=== PATIENT | male | born 1980 | race Caucasian/White ===

== ENCOUNTER → 2024-03-08 15:31 | Outpatient (REF) | payer OTHER, SELFPAY | LOC: ANHLAB 15:31 | PROVIDERS: Visit Provider Plastic Surgery | DX: L72.0 Epidermal cyst (principal) | CPT/HCPCS: 88305 ==

== ENCOUNTER 2024-05-24 10:04 | Inpatient (IN) | payer OTHER, SELFPAY ==
[2024-05-24] VITALS (30 sets, daily range): BP systolic 121–150; BP diastolic 82–100; PULSE 79–117; RESP 14–20; TEMP 36.3–36.8; O2SAT 88–100; BMI 21.1
--- NOTE | ~2024-05-24 | XR_ITS ---
EXAMINATION: XR chest 1V portable DATE: 05/24/2024 12:28 INDICATION: Shortness of breath. Cough. TECHNIQUE: A single frontal view of the chest was obtained on 2 radiographs. COMPARISON: None. FINDINGS: There is no pneumonia, pleural effusion, or pneumothorax. The heart size is normal. IMPRESSION: 1. No acute cardiopulmonary disease. Reviewed, dictated and finalized at location A. [facility]
--- NOTE | ~2024-05-24 | CT_ITS ---
EXAMINATION: CTA chest PE protocol DATE: 05/27/2024 08:11 INDICATION: Tachycardia. Tachypnea. TECHNIQUE: Computed tomography angiography (CTA) of the chest was performed with 100 mL Omnipaque-350 intravenous contrast timed to evaluate the pulmonary arteries. Coronal maximum intensity projection 3D-reconstructions were created by the technologist. Automated exposure control and iterative reconst ruction technique were employed. The dose-length product was 348.66 mGy-cm. COMPARISON: Chest CT 05/24/2024 FINDINGS: There is mild emphysema. There are small pleural effusions. There are airspace opacities in the lower lobes with a dependent predominance. There is material in the left lower lobe bronchi. The re is mild mediastinal lymphadenopathy, likely reactive. The heart size is normal. There is a small p ericardial effusion. There is no pulmonary embolus. There is mild thoracic spondylosis. There is mild chronic anterior wedging of multiple vertebral bodies. IMPRESSION: 1. No pulmonary embolus. 2. Worsened airspace opacities in the lower lobes, consistent with a combination of pneumonia and ate lectasis. 3. Worsened small pleural effusions. 4. Mild emphysema. 5. Mild mediastinal lymphadenopathy, likely reactive. 6. Worsened small pericardial effusion. Reviewed, dictated and finalized at location A. [facility] IMPRESSION: 1. No pulmonary embolus. 2. Worsened airspace opacities in the lower lobes, consistent with a combinatio n of pneumonia and atelectasis. 3. Worsened small pleural effusions. 4. Mild emphysema. 5. Mild mediastinal lymphadenopathy, likely reactive. 6. Worsened small pericardial effusion.
--- NOTE | ~2024-05-24 | CT_ITS ---
EXAMINATION: CT diagnostic chest w con DATE: 05/24/2024 14:08 INDICATION: new oxygen requirement, SOB TECHNIQUE: Computed tomography (CT) of the chest was performed with 100 mL Omnipaque-350 intravenous contrast. Additional 3D reconstructions utilizing coronal maximum intensity projection (MIP) were per formed. Automated exposure control and iterative reconstruction technique were employed. The dose-mone gth product was 347.68 mGy-cm. COMPARISON: None FINDINGS: Mild emphysema. Patchy consolidation, groundglass opacities and tree-in-bud opacities in the dependen t aspect of the bilateral lower lobes consistent with pneumonia. There is bronchial wall thickening m ost prominent in the lower lobes where there is also some mucous plugging also likely related to pneu monia. No pulmonary edema or pleural effusion. Heart size is normal. No pericardial effusion. Thoraci c aorta is normal in caliber with no dissection. Subcentimeter low-attenuation likely cysts at the up per poles of both kidneys which are too small to definitively characterize. The left upper abdomen is otherwise unremarkable. Mild to moderate thoracic spondylosis. IMPRESSION: 1. Mild emphysema with bilateral lower lobar pneumonia. Reviewed, dictated and finalized at location A. [facility]
--- NOTE | 2024-05-24 10:46 | ECG_ITS ---
Test Date: 2024-05-24 11:02:26 Measurements Intervals [place] Rate: 111 P: 64 NH: 148 QRS: 64 QRSD: 98 T: 74 QT: 274 QTc: 373 Interpretive Statements SINUS TACHYCARDIA NONSPECIFIC ST & T-WAVE ABNORMALITY- DIFFUSE LEADS BASELINE ARTIFACT- I, II, III, AVR, AVL, AVF, V1-V6 ABNORMAL ECG No previous ECG available for comparison Electronically Signed On 05-24-2024 11:07:29 PUBLIC SERVICE OFFICER by Donny Veliz D.O.
--- NOTE | 2024-05-24 10:56 | ED.URI ---
HPI - URI/Sore Throat General Chief Complaint: Upper Respiratory Infection Stated Complaint: positive flu last thursday not feeling better Time Seen by Provider: 05/24/24 10:25 History of Present Illness HPI Narrative: Patient is a 43-year-old male who presents to the ER complaints shortness of breath and weakness. He reports started experiencing symptoms approximately 10 days ago. Six days ago he went to Urgent Care was diagnosed with the flu. Since that time patient reports he has had increased weakness, some vomiting, and decreased po intake. He denies any medical history in reports he does not take any daily medications. Patient reports he has been taking Advil and Mucinex at home. He denies any wheezing, back pain, urinary symptoms. Patient reports he does not usually have an oxygen requirement but upon arrival to the ER he is requiring 3 L nasal cannula to maintain oxygen saturation in mid 90s. Related Data Home Medications ?Medication ?Instructions ?Recorded ?Confirmed ?Last Taken ?Type No Home Medications 05/24/24 05/24/24 Unknown History Allergies Allergy/AdvReac Type Severity Reaction Status Date / Time No Known Allergies Allergy Mild Verified 05/24/24 16:21 Review of Systems Review of Systems: All systems reviewed & are unremarkable except as noted in HPI and below PMFSH Past Medical History Medical History (Updated 05/25/24 @ 10:21 by VANDANA Garcia) Tobacco dependence Surgical History Surgical History (Updated 05/24/24 @ 23:24 by Dagmar Linton PA-C) History of removal of cyst left cheek Family History Family History (Updated 05/24/24 @ 23:25 by Dagmar Linton PA-C) Other Family history non-contributory Social History Social History (Updated 05/24/24 @ 23:25 by Dagmar Linton PA-C) Social History: Surrogate medical decision maker: Nabeel Sanchez, mother ([phone]). Code status: Full code. Smoking packs per day: 1 Smoking cigarettes per day: 20.0 Years smoked: 20 Smoking pack-years: 20.00 Smoking status: Current every day smoker Tobacco type: cigarettes Second hand tobacco smoke exposure: Yes Alcohol intake: current Drinks per week: 12 Substance use: never Do You Feel Safe in your Home?: Yes Lack of Transportation: No Lack of Food: Never True Current Housing: I Have Housing Concerned About Future Housing: No Difficulty Paying Gas/Electric Bills: No Difficulty Paying for Meds: No Currently Unemployed: No Education: High School Diploma/GED Difficulty w/ Childcare or Family Care: No Spiritual care concerns: No Exam Narrative: GENERAL: Ill-appearing, well-nourished, non-toxic, in no acute distress. HEAD: Normocephalic, atraumatic. NECK: Supple. No adenopathy, no masses. RESPIRATORY: Airway patent, respirations nonlabored. Clear to auscultation bilaterally, no rales, rhonchi, wheezing. CARDIOVASCULAR: Tachycardia without murmurs, rubs, or gallops. Peripheral pulses 2+ and equal bilaterally. ABDOMINAL: Soft, nontender, nondistended, no hepatosplenomegaly. Normoactive BS. MUSCULOSKELETAL: Moves all extremities. Strength/ROM intact without gross deformities. SKIN: Warm, dry, normal color. No rashes. NEURO: A&O X3. Speech clear. Cranial nerves II-XII grossly intact. No ataxic movements. PSYCHIATRIC: Appropriate mood and affect. Normal interaction. Course Vital Signs Vital signs: Vital Signs Temperature 36.8 C 05/24/24 10:08 Pulse Rate 117 H 05/24/24 10:08 Respiratory Rate 20 05/24/24 10:08 Blood Pressure 147/89 H 05/24/24 10:08 Pulse Oximetry 88 L 05/24/24 10:08 Oxygen Delivery Room Air 05/24/24 10:08 Temperature 36.4 C 05/25/24 14:00 Pulse Rate 104 H 05/25/24 18:06 Respiratory Rate 18 05/25/24 14:53 Blood Pressure 130/78 05/25/24 14:00 Pulse Oximetry 96 05/25/24 14:44 Oxygen Delivery Nasal Cannula 05/25/24 14:44 Oxygen Flow Rate 0.5 05/25/24 14:44 MDM - URI/Sore Throat MDM Narrative Medical decision making narrative: Patient is a 43-year-old male who presents to the ER complaints shortness of breath and weakness. He reports started experiencing symptoms approximately 10 days ago. Six days ago he went to Urgent Care was diagnosed with the flu. Since that time patient reports he has had increased weakness, some vomiting, and decreased po intake. He denies any medical history in reports he does not take any daily medications. Patient reports he has been taking Advil and Mucinex at home. He denies any wheezing, back pain, urinary symptoms. Patient reports he does not usually have an oxygen requirement but upon arrival to the ER he is requiring 3 L nasal cannula to maintain oxygen saturation in mid 90s. Labs Ordered: CBC, CMP, CRP, lactic acid, blood cultures, ABG, UA, UDS, INR, PTT, BMP, magnesium, troponin, COVID/flu/RSV, D-dimer Imaging Ordered: Chest x-ray, CT diagnostic test Medications Ordered: Toradol, 2 L normal saline IV boluses, potassium IV, magnesium IV, potassium p.o., ceftriaxone, Zithromax Results: Patient's CT scan indicates Mild emphysema. Patchy consolidation, groundglass opacities and tree-in-bud opacities in the dependent aspect of the bilateral lower lobes consistent with pneumonia. There is bronchial wall thickening most prominent in the lower lobes where there is also some mucous plugging also likely related to pneumonia. No pulmonary edema or pleural effusion. Heart size is normal. No pericardial effusion. Thoracic aorta is normal in caliber with no dissection. Subcentimeter low-attenuation likely cysts at the upper poles of both kidneys which are too small to definitively characterize. The left upper abdomen is otherwise unremarkable. Mild to moderate thoracic spondylosis. Diagnosis: Hypokalemia, pneumonia Patient Education/Shared MDM: Results shared with patient. Patient's potassium and magnesium replaced in the ER. Once his CT results came back patient was also started on IV antibiotics to treat his pneumonia. Patient was also rehydrated with NS via IV. He understands he will be admitted to the hospital and is in agreement. 1415-Spoke with hospitalist who is in agreement with plan for admission. Pt continues to require 3 L nasal cannula to maintain his oxygen saturation greater than 95%. Differential Diagnosis Differential diagnosis: Likely upper respiratory infection, sinusitis, viral infection, bronchitis, influenza and other (pneumonia) Lab Data Attestation: I reviewed the patient's lab results. 05/25/24 05:47 05/25/24 05:47 Labs: Lab Results 05/24/24 05/24/24 Range/Units 11:25 11:53 WBC 8.3 (4.5-10.0) K/mm3 RBC 3.98 L (4.6-6.20) M/mm3 Hgb 15.9 (14.0-18.0) g/dL Hct 42.4 (42.0-52.0) % MCV 106.5 H (80-100) fl MCH 39.9 H (26-34) pg MCHC 37.5 H (32-36) g/dl RDW 12.5 (11.5-14.5) % Plt Count 251 (150-375) k/mm3 MPV 10.5 H (7.4-10.4) fl Immature Gran % (Auto) 0.6 H (0-0.5) % Neut % (Auto) 69.1 (45.5-73.1) % Lymph % (Auto) 16.6 L (18.3-44.2) % [place] % (Auto) 13.2 H (2.6-8.5) % Eos % (Auto) 0.1 (0-4.4) % Baso % (Auto) 0.4 (0.2-1.2) % Lymph # (Auto) 1.38 (0.9-3.2) K/mm3 [place] # (Auto) 1.1 H (0.1-0.6) K/mm3 Eos # (Auto) 0.0 (0-0.3) K/mm3 Baso # (Auto) 0.0 (0.0-0.1) K/mm3 Abs Immat Gran (auto) 0.05 H (0.00-0.031) K/mm3 Absolute Neuts (auto) 5.8 (1.3-6.7) K/mm3 Absolute Nucleated RBC 0.000 (0.0-0.012) K/mm3 Nucleated RBC % 0.0 (0.0-0.2) % Platelet Estimate Adequate (Adequate) Anisocytosis 1+ Macrocytosis 1+ (NORMAL) Schistocytes None seen PT 12.9 (11.1-14.7) Seconds INR 0.9 APTT 26.5 (22.3-36.8) Seconds D-Dimer < 0.27 (<0.48) ug/mL Sodium 131 L (137-145) mmol/L Potassium 2.1 L* (3.4-5.0) mmol/L Chloride 78 L (98-107) mmol/L Carbon Dioxide > 40 H (22-30) mmol/L Anion Gap (4-12) mmol/L BUN 10 (9-20) mg/dL Creatinine 0.68 L (0.7-1.3) mg/dL Estim Creat Clear Calc Not Reportable Estimated GFR > 60 (59 - ) Glucose 117 H (65-110) mg/dL Lactic Acid 1.0 (0.7-2.0) mmol/L Calcium 8.8 (8.4-10.2) mg/dL Magnesium 1.5 L (1.6-2.3) mg/dL Total Bilirubin 1.0 (0.2-1.3) mg/dL AST 46 (17-59) U/L ALT 20 (6-50) U/L Alkaline Phosphatase 90 (38-126) U/L Troponin I < 0.012 (0.000-0.034) ng/mL NT-Pro-B Natriuret Pep 102 H (19.9-100) pg/mL Total Protein 7.0 (6.3-8.2) g/dL Albumin 3.7 (3.5-5.1) g/dL TSH (Reflex) 1.190 (0.465-4.68) uIU/mL Urine Color Dark yellow (Yellow) Urine Appearance Clear (Clear) Urine pH 6.5 (5.0-9.0) Ur Specific [place] 1.017 (1.001-1.035) Urine Protein 1+ H (Negative) mg/dL Urine Glucose (UA) Negative (Negative) mg/dL Urine Ketones Trace H (Negative) mg/dL Ur Blood (Man) Negative (Negative) Urine Nitrate Negative (Negative) Urine Bilirubin 1+ H (Negative) Urine Urobilinogen 1.0 (<2.0) mg/dL Leukocyte Esterase Rfl Trace H (Negative) ELI/UL Urine RBC 0-2 (0-2) /hpf Urine WBC 0-5 (0-3) /hpf Ur Squamous Epith Cells Moderate (Few) /hpf Urine Bacteria None seen /hpf Urine Casts 6-10 Hyaline Casts Present (None) /lpf Urine Mucus Present /lpf Urine Opiates Screen Negative (Negative) Urine Methadone Screen Negative (Negative) Ur Barbiturates Screen Negative (Negative) Ur Phencyclidine Scrn Negative (Negative) Ur Amphetamine Screen Negative (Negative) U Benzodiazepines Scrn Negative (Negative) Urine Cocaine Screen Negative (Negative) U Cannabinoids Screen Positive A (Negative) Influenza A (RT-PCR) Negative (Negative) Influenza B (RT-PCR) Negative (Negative) RSV (RT-PCR) Negative (Negative) SARS-CoV-2 RNA (RT-PCR) Negative (Negative) ABG Data ABG results: 05/24/24 12:20 Puncture Site Right radial ABG pH 7.581 H* ABG pCO2 36.2 ABG pO2 62.9 L ABG PO2/FiO2 Ratio 1.97 ABG HCO3 33.3 H ABG O2 Saturation 95.0 ABG O2 Content 19.0 ABG Base Excess 10.8 A-a Gradient 122.9 Oxyhemoglobin 89.6 L Total Hemoglobin 15.1 O2 Delivery Device Nasal cannula O2 Liters/Min 3.0 FiO2 32 Imaging Data Attestation: I personally reviewed and interpreted this imaging study as follows: Radiologist's impression: Impressions Chest X-Ray 05/24/24 12:28 IMPRESSION: 1. No acute cardiopulmonary disease. Chest CT 05/24/24 14:10 IMPRESSION: 1. Mild emphysema with bilateral lower lobar pneumonia. Discharge Plan Discharge Clinical Impression: Upper respiratory infection, Pneumonia, Hypokalemia Patient Disposition: Still a Patient Condition: Stable
[2024-05-24] MEDS: SODIUM CHLORIDE 0.9% IV 1,000 ML 999 ML IV CONT ×2 (11:23→17:14)
[2024-05-24] MEDS: KETOROLAC 15 MG/ML VIAL (*BKC) IV PUSH (11:23)
[2024-05-24 11:51] LABS: INR 0.9; Prothrombin Time 12.9 Seconds (11.1-14.7)
[2024-05-24 11:52] LABS: Partial Thromboplastin Time 26.5 Seconds (22.3-36.8)
[2024-05-24 11:55] LABS: Basophils Percent Auto 0.4 % (0.2-1.2); Eosinophils Percent Auto 0.1 % (0-4.4); Hematocrit 42.4 % (42.0-52.0); Hemoglobin 15.9 g/dL (14.0-18.0); Immature Granulocyte Absolute 0.05 K/mm3 (0.00-0.031); Immature Granulocyte Percent A 0.6 % (0-0.5); Lymphocytes Absolute Auto 1.38 K/mm3 (0.9-3.2); Lymphocytes Percent Auto 16.6 % (18.3-44.2); Mean Corpuscular HGB Conc 37.5 g/dl (32-36); Mean Corpuscular Hemoglobin 39.9 pg (26-34); Mean Corpuscular Volume 106.5 fl (80-100); Mean Platelet Volume 10.5 fl (7.4-10.4); Monocytes Absolute Auto 1.1 K/mm3 (0.1-0.6); Monocytes Percent Auto 13.2 % (2.6-8.5); Neutrophils Absolute Auto 5.8 K/mm3 (1.3-6.7); Neutrophils Percent Auto 69.1 % (45.5-73.1); Platelet Count Result 251 k/mm3 (150-375); Red Blood Count 3.98 M/mm3 (4.6-6.20); Red Cell Distribution Width 12.5 % (11.5-14.5); White Blood Count 8.3 K/mm3 (4.5-10.0)
[2024-05-24 12:01] LABS: NT Pro B Type Natriuretic Pept 102 pg/mL (19.9-100); Troponin I < 0.012 ng/mL (0.000-0.034)
[2024-05-24 12:04] LABS: Alanine Aminotransferase 20 U/L (6-50); Albumin Level 3.7 g/dL (3.5-5.1); Alkaline Phosphatase 90 U/L (38-126); Aspartate Amino Transferase 46 U/L (17-59); Blood Urea Nitrogen 10 mg/dL (9-20); Calcium 8.8 mg/dL (8.4-10.2); Carbon Dioxide > 40 mmol/L (22-30); Chloride 78 mmol/L (98-107); Estimated Glomerular Filt Rate > 60; Glucose 117 mg/dL (65-110); Magnesium 1.5 mg/dL (1.6-2.3); Potassium 2.1 mmol/L (3.4-5.0); Sodium 131 mmol/L (137-145)
[2024-05-24 12:08] LABS: Influenza A QL RT-PCR Negative (Negative); Influenza B QL RT-PCR Negative (Negative); RSV RNA, RT-PCR Negative (Negative); SARS-CoV-2 RNA PCR Negative (Negative)
[2024-05-24 12:23] LABS: Alveolar/Arterial O2 Gradient 122.9 mmHg; Base Excess ABG 10.8 mEq/l (+/-2.0); Fractional Inspired Oxygen 32 %; HCO3 ABG 33.3 mEq/l (22.0-26.0); Oxyhemoglobin 89.6 % THb (90.0-100.0); PCO2 ABG 36.2 mmHg (35.0-45.0); PO2 ABG 62.9 mmHg (80.0-100.0); PO2 FiO2 Ratio Arterial Blood 1.97 %; Total Hemoglobin 15.1 g/dL (12.0-18.0)
[2024-05-24 12:23] LABS: Anisocytosis 1+; Macrocytosis 1+ (NORMAL); Platelet Estimate Adequate (Adequate); Schistocytes None Seen
[2024-05-24 12:24] LABS: Device NASAL CANNULA; Modified Allen's Test Pass; Site Drawn RIGHT RADIAL; pH ABG 7.581 (7.350-7.450)
[2024-05-24 12:27] LABS: Amphetamine Screen Urine Negative (Negative); Barbiturate Screen Urine Negative (Negative); Benzodiazepines Screen Urine Negative (Negative); Cannabinoid Screen Urine Positive (Negative); Cocaine Screen Urine Negative (Negative); Methadone Screen Urine Negative (Negative); Opiate Screen Urine Negative (Negative); Phencyclidine Screen Urine Negative (Negative)
[2024-05-24 12:31] LABS: Add Urine Microscopic? YES; Appearance Urine Clear (Clear); Bacteria Urine None Seen /hpf; Bilirubin Urine 1+ (Negative); Blood Urine Negative (Negative); Color Urine Dark Yellow (Yellow); Glucose Urine UA Negative (Negative); Hyaline Casts Urine Present /lpf; Ketones Urine Trace mg/dL (Negative); Leukocyte Esterase Ur Trace LEU/UL (Negative); Mucus Urine Present /lpf; Nitrate Urine Negative (Negative); Protein Urine 1+ mg/dL (Negative); RBC Urine 0-2 /hpf (0-2); Specific Grav Ur 1.017 (1.001-1.035); Squamous Epithelial Cell Urine Moderate /hpf (Few); WBC Urine 0-5 /hpf (0-3); pH Urine 6.5 (5.0-9.0)
[2024-05-24 12:33] LABS: D Dimer < 0.27 ug/mL (<0.48)
[2024-05-24] MEDS: MAGNESIUM SULF 4 GM/WATER100ML 4 GM/100 ML BAG IVPB (12:34)
[2024-05-24] MEDS: POTASSIUM CHLORIDE INJ 40 MEQ in SODIUM CHLORIDE 0.9% IV 500 ML 130 MEQ IVPB ×2 (12:50→20:56)
[2024-05-24] MEDS: SODIUM CHLORIDE 0.9% IV 500 ML 100 ML IV CONT (12:51)
--- NOTE | 2024-05-24 14:25 | P.HP_ITS ---
H&P: HPI History of Present Illness Date/Time: 05/24/24 14:25 Chief Complaint: Shortness of breath and weakness. Narrative: This is a 43-year-old male smoker who presented to the emergency department via private vehicle with complaints of shortness of breath and weakness. The patient provides the following history. He has not been feeling well for 7 to 10 days with symptoms to include congestion, cough productive of thick green phlegm, nausea, vomiting and poor oral intake. He was diagnosed with influenza last Thursday at a local urgent care and he is not feeling better. His appetite is still poor but he has not vomited for almost a week. He has gotten progressively more weak and short of breath with exertion. Mucinex and Advil have not provided him with any significant relief. He denies fever, chest pain, pleuritic pain, hemoptysis, recent vomiting, and diarrhea. In the ED: SpO2 was 88% on room air on arrival, currently requiring 3 L. He has been afebrile with stable pulse and blood pressure. Labs are significant for WBC count of 8.3, MCV 106.5, sodium 131, potassium 2.1, chloride 78, carbon dioxide greater than 40, lactic acid 1.0, magnesium 1.5, troponin less than 0.012, proBNP 102. ABG: PH 7.581, pCO2 36.2, PO2 62.9, HC03 33.3. Urinalysis was positive for 1+ protein, trace ketones, 1+ bilirubin, and trace leukocyte esterase. He tested negative for influenza, RSV, and COVID. Chest CT showed mild emphysema with bilateral lower lobar pneumonia. He was given a L normal saline bolus, potassium chloride 40 mEq IV, magnesium sulfate 4 g, azithromycin 500 mg, and ceftriaxone 1 g. He is being admitted in this setting with pneumonia, hypoxia, and electrolyte derangements. Review of Systems Review of Systems: 12 systems were reviewed and are negativ e except for as per HPI. [facility] Past Medical History Medical History (Updated 05/24/24 @ 14:58 by Dagmar Linton PA-C) Tobacco dependence Surgical History Surgical History (Updated 05/24/24 @ 23:24 by Dagmar Linton PA-C) History of removal of cyst left cheek Family History Family History (Updated 05/24/24 @ 23:25 by Dagmar Linton PA-C) Other Family history non-contributory Social History Social History (Updated 05/24/24 @ 23:25 by Dagmar Linton PA-C) Social History: Surrogate medical decision maker: Nabeel Sanchez, mother ([phone]). Code status: Full code. Smoking packs per day: 1 Smoking cigarettes per day: 20.0 Years smoked: 20 Smoking pack-years: 20.00 Smoking status: Current every day smoker Tobacco type: cigarettes Second hand tobacco smoke exposure: Yes Alcohol intake: current Drinks per week: 12 Substance use: never Do You Feel Safe in your Home?: Yes Lack of Transportation: No Lack of Food: Never True Current Housing: I Have Housing Concerned About Future Housing: No Difficulty Paying Gas/Electric Bills: No Difficulty Paying for Meds: No Currently Unemployed: No Education: High School Diploma/GED Difficulty w/ Childcare or Family Care: No Spiritual care concerns: No Meds Home Medications and Allergies Home Medications ?Medication ?Instructions ?Recorded ?Confirmed ?Type No Home Medications 05/24/24 05/24/24 History Allergies Allergy/AdvReac Type Severity Reaction Status Date / Time No Known Allergies Allergy Mild Verified 05/24/24 16:21 Vital Signs Vital Signs - 24 hr 05/24/24 10:08 05/24/24 10:20 05/24/24 10:21 Temperature 98.2 F Pulse Rate 117 H Respiratory Rate 20 Blood Pressure 147/89 H Pulse Oximetry 88 L 94 95 Oxygen Delivery Room Air Nasal Cannula Nasal Cannula Oxygen Flow Rate 3 3 05/24/24 10:21 05/24/24 11:59 05/24/24 12:00 Temperature Pulse Rate 116 H 101 H Respiratory Rate 15 14 Blood Pressure 149/100 H 135/82 Pulse Oximetry 95 96 96 Oxygen Delivery Nasal Cannula Oxygen Flow Rate 1 05/24/24 12:12 05/24/24 12:53 Temperature Pulse Rate 94 Respiratory Rate 14 Blood Pressure 131/85 Pulse Oximetry 96 97 Oxygen Delivery Nasal Cannula Oxygen Flow Rate 3 Exam Narrative: General: Mildly ill-appearing male sitting up in bed in no acute distress. Weight: 63 kg. BMI: 21.1. HEENT: PERRL, EOMI. Sclera anicteric. Tacky mucous membranes. Neck: Supple. No JVD or lymphadenopathy. Respiratory: On 3 L nasal cannula. Respirations are nonlabored he is speaking in full sentences. Rales at the right base with faint wheezing. Cardiovascular: Regular rate and rhythm with S1-S2. Gastrointestinal: Abdomen is soft, nontender, and nondistended with positive bowel sounds. Skin: Warm and dry. No rash or lesions on limited exam. Extremities: No cyanosis, clubbing, or edema. Radial and pedal pulses intact. Neurological: Alert. Cranial nerves 2-12 are grossly intact. No gross focal deficits to casual conversation. Psychiatric: Pleasant and cooperative with normal mood and affect. Judgment and insight intact. H&P: Results Labs Labs: Short CBC 05/24/24 Range/Units 11:25 WBC 8.3 (4.5-10.0) K/mm3 Hgb 15.9 (14.0-18.0) g/dL Hct 42.4 (42.0-52.0) % Plt Count 251 (150-375) k/mm3 BMP 05/24/24 11:25 Sodium 131 L Potassium 2.1 L* Chloride 78 L Carbon Dioxide > 40 H BUN 10 Creatinine 0.68 L Glucose 117 H Calcium 8.8 Cardiac Enzymes 05/24/24 Range/Units 11:25 Troponin I < 0.012 (0.000-0.034) ng/mL Liver Function 05/24/24 Range/Units 11:25 Total Bilirubin 1.0 (0.2-1.3) mg/dL AST 46 (17-59) U/L ALT 20 (6-50) U/L Alkaline Phosphatase 90 (38-126) U/L Albumin 3.7 (3.5-5.1) g/dL Urine 05/24/24 Range/Units 11:53 Urine Color Dark yellow (Yellow) Urine Appearance Clear (Clear) Urine pH 6.5 (5.0-9.0) Ur Specific [place] 1.017 (1.001-1.035) Urine Protein 1+ H (Negative) mg/dL Urine Glucose (UA) Negative (Negative) mg/dL Impressions Chest X-Ray 05/24/24 12:28 IMPRESSION: 1. No acute cardiopulmonary disease. Chest CT 05/24/24 14:10 IMPRESSION: 1. Mild emphysema with bilateral lower lobar pneumonia. Assessment and Plan Assessment and plan (1) Acute respiratory failure with hypoxia: Code(s): J96.01 - Acute respiratory failure with hypoxia Status: Acute (2) Pneumonia: Code(s): J18.9 - Pneumonia, unspecified organism Status: Acute (3) Hypokalemia: Code(s): E87.6 - Hypokalemia Status: Acute (4) Dehydration: Code(s): E86.0 - Dehydration Status: Acute (5) Hypomagnesemia: Code(s): E83.42 - Hypomagnesemia Status: Acute (6) Tobacco dependence: Code(s): F17.200 - Nicotine dependence, unspecified, uncomplicated Status: Acute Plan The patient presented to the emergency department for evaluation of shortness of breath and weakness after having been diagnosed with influenza last Thursday as detailed in HPI. Labs, imaging, EKG, and all reports were personally reviewed. SpO2 was 88% on arrival and he is currently requiring 3 L nasal cannula. Chest CT showed mild emphysema with bilateral lower lobar pneumonia and he has been started on azithromycin and ceftriaxone for presumed bacterial pneumonia (respiratory panel was negative). MRSA nasal screen is pending. Send sputum for cultures. Oxygen will weaned as tolerated. He is a bit dehydrated and has been started on normal saline. Potassium and magnesium will be replaced and monitored. Smoking cessation is imperative and was discussed. His home medications will be reviewed and resumed as appropriate. Findings and treatment plan were discussed with the patient. Questions were solicited and answered to satisfaction. The patient's medical management will be taken over by the hospitalist team in a.m. Quality VTE Prophylaxis VTE prophylaxis: pharmacologic ordered Hospitalist [facility] Advance Care Plan I have confirmed that the patient's Advanced Care Plan is present, code status is documented, or surrogate decision maker is listed in patient medical record.: Yes Medication Reconciliation I have utilized all available resources to obtain, update and review the patients current medications (includes all prescriptions, OTC, herbals, cannabis, and nutritional supplements).: Yes
[2024-05-24] MEDS: POTASSIUM CHLORIDE 20 MEQ PACKET (FOR LIQUID) 40 MEQ PO (15:13)
[2024-05-24] MEDS: AZITHROMYCIN 500 MG/NS 250 ML 500 MG/250 ML BAG 250 MG IVPB (15:13)
--- NOTE | 2024-05-24 16:01 | ADMGEN ---
This patient, Marcelo Sanchez, was admitted to Medical Room 252-. Patient/family oriented to hospital policies and general routines including ID bracelet, bed and alarms, visiting hours, pain management, procedures, bathroom and other care routines, personal items, smoking policy, room service/diet, and visiting hours. Information on how to activate the Rapid Response Team has been discussed. Patient/Family are encouraged to report perceived risks to care and to ask questions if they do not understand what they are told or what they should do.
[2024-05-24] MEDS: SODIUM CHLORIDE 0.9% IV 1,000 ML 100 ML IV CONT (18:24)
[2024-05-24 19:01] LABS: Anion Gap 5 mmol/L (4-12); Blood Urea Nitrogen 12 mg/dL (9-20); Calcium 7.8 mg/dL (8.4-10.2); Carbon Dioxide 36 mmol/L (22-30); Chloride 88 mmol/L (98-107); Estimated CRCL calculation 96 ml/min; Estimated Glomerular Filt Rate > 60; Glucose 100 mg/dL (65-110); Potassium 2.3 mmol/L (3.4-5.0); Sodium 129 mmol/L (137-145)
[2024-05-24 19:19] LABS: Procalcitonin 0.3 ng/mL
[2024-05-24] MEDS: guaiFENesin 12 HR 600 MG TABCR 1200 MG PO (20:16)
[2024-05-24] MEDS: POTASSIUM CHLORIDE 20 MEQ ER TABLET 40 MEQ PO (20:27)
[2024-05-24] MEDS: IPRATROPIUM 0.5 MG/ALBUTEROL SULFATE 2.5 MG AMPUL.NEB 3 ML INHALATION (20:50)
[2024-05-25] VITALS (23 sets, daily range): BP systolic 128–164; BP diastolic 78–94; PULSE 78–116; RESP 18; TEMP 36.3–37.1; O2SAT 86–99
[2024-05-25] MEDS: IPRATROPIUM 0.5 MG/ALBUTEROL SULFATE 2.5 MG AMPUL.NEB 3 ML INHALATION ×4 (02:49→20:14)
[2024-05-25 06:27] LABS: Hematocrit 35.9 % (42.0-52.0); Hemoglobin 12.9 g/dL (14.0-18.0); Mean Corpuscular HGB Conc 35.9 g/dl (32-36); Mean Corpuscular Hemoglobin 40.1 pg (26-34); Mean Corpuscular Volume 111.5 fl (80-100); Mean Platelet Volume 10.7 fl (7.4-10.4); Platelet Count Result 261 k/mm3 (150-375); Red Blood Count 3.22 M/mm3 (4.6-6.20); White Blood Count 6.6 K/mm3 (4.5-10.0)
[2024-05-25 06:50] LABS: Anion Gap 7 mmol/L (4-12); Blood Urea Nitrogen 10 mg/dL (9-20); Calcium 7.7 mg/dL (8.4-10.2); Carbon Dioxide 34 mmol/L (22-30); Chloride 93 mmol/L (98-107); Estimated CRCL calculation 136 ml/min; Estimated Glomerular Filt Rate > 60; Glucose 93 mg/dL (65-110); Potassium 2.8 mmol/L (3.4-5.0); Sodium 134 mmol/L (137-145)
[2024-05-25 07:12] LABS: MRSA (PCR) NOT DETECTED (NOT DETECTE)
[2024-05-25] MEDS: FLUTICASONE PROPIONATE 0.05% NA SPR 16 GM BTL (*BKC) 1 SPRAY NASAL ×2 (09:19→20:53)
[2024-05-25] MEDS: guaiFENesin 12 HR 600 MG TABCR 1200 MG PO ×2 (09:19→20:54)
[2024-05-25] MEDS: POTASSIUM CHLORIDE INJ 40 MEQ in SODIUM CHLORIDE 0.9% IV 500 ML 130 MEQ IVPB ×2 (09:19→22:59)
[2024-05-25] MEDS: POTASSIUM CHLORIDE 20 MEQ ER TABLET 40 MEQ PO ×2 (09:19→22:59)
[2024-05-25] MEDS: ENOXAPARIN 40 MG/0.4 ML SYRINGE SUB-Q (09:19)
--- NOTE | 2024-05-25 10:14 | P.PNIM_ITS ---
Progress Note: A&P Assessment and Plan (1) Acute respiratory failure with hypoxia: Code(s): J96.01 - Acute respiratory failure with hypoxia Status: Acute Assessment and Plan: 05/25/24: * Supportive care with supplemental oxygen * Wean oxygen as tolerated. * Monitor and trend VS and labs (2) Pneumonia: Code(s): J18.9 - Pneumonia, unspecified organism Status: Acute Assessment and Plan: * Continue IV abx * Continue duonebs * Continue Mucinex (3) Hypokalemia: Code(s): E87.6 - Hypokalemia Status: Acute Assessment and Plan: * Pt received 40 mEq po and 40 mEq IV yesterday for K+ of 2.1. * To receive another 40 mEq and 40 mEq today for 2.8. * Trend labs and VS. (4) Dehydration: Code(s): E86.0 - Dehydration Status: Resolved Assessment and Plan: Resolved (5) Hypomagnesemia: Code(s): E83.42 - Hypomagnesemia Status: Resolved Assessment and Plan: Resolved (6) Tobacco dependence: Code(s): F17.200 - Nicotine dependence, unspecified, uncomplicated Status: Acute Assessment and Plan: * nicotine patch * Counseled for nicotine abuse. Time Spent With Patient Time with patient: 25 - 35 minutes Subjective Date/time seen: 05/25/24 0915 Interval history: Pt examined at the bedside today. No acute Distress or complaints noted. He states he feels some improvement as compared to yesterday, but is still coughing. VSS, remains on supplemental oxygen at this time that we will attempt to wean today. Review of Systems Review of Systems: All systems reviewed & are unremarkable except as noted in HPI and below Exam Narrative: General: Mildly ill-appearing male sitting up in bed in no acute distress. HEENT: PERRL, EOMI. Neck: Supple. No JVD or lymphadenopathy. Respiratory: On 3 L nasal cannula. Respirations are nonlabored he is speaking in full sentences. Rales at the right base with faint wheezing. Cardiovascular: Regular rate and rhythm with S1-S2. Gastrointestinal: Abdomen is soft, nontender, and nondistended with positive bowel sounds. Skin: Warm and dry. No rash or lesions on limited exam. Extremities: No cyanosis, clubbing, or edema. Radial and pedal pulses intact. Neurological: Alert. Cranial nerves 2-12 are grossly intact. No gross focal deficits to casual conversation. Psychiatric: Pleasant and cooperative with normal mood and affect. Judgment and insight intact. Objective Data Vital Signs Vital Signs: Vital Signs - 24 hr 05/24/24 10:20 05/24/24 10:21 05/24/24 10:21 Temperature Pulse Rate 116 H Pulse Rate [Monitor] Respiratory Rate 15 Blood Pressure 149/100 H Pulse Oximetry 94 95 95 Oxygen Delivery Nasal Cannula Nasal Cannula Oxygen Flow Rate 3 3 05/24/24 11:59 05/24/24 12:00 05/24/24 12:12 Temperature Pulse Rate 101 H Pulse Rate [Monitor] Respiratory Rate 14 Blood Pressure 135/82 Pulse Oximetry 96 96 96 Oxygen Delivery Nasal Cannula Nasal Cannula Oxygen Flow Rate 1 3 05/24/24 12:32 05/24/24 12:45 05/24/24 12:53 Temperature Pulse Rate 102 H 98 94 Pulse Rate [Monitor] Respiratory Rate 15 20 14 Blood Pressure 131/85 Pulse Oximetry 95 96 97 Oxygen Delivery Oxygen Flow Rate 05/24/24 13:13 05/24/24 13:21 05/24/24 13:30 Temperature Pulse Rate 90 97 Pulse Rate [Monitor] Respiratory Rate 16 Blood Pressure 138/92 H Pulse Oximetry 97 97 97 Oxygen Delivery Oxygen Flow Rate 05/24/24 13:31 05/24/24 13:45 05/24/24 13:46 Temperature Pulse Rate 97 Pulse Rate [Monitor] Respiratory Rate 18 Blood Pressure 133/88 Pulse Oximetry 97 96 98 Oxygen Delivery Oxygen Flow Rate 05/24/24 14:12 05/24/24 14:13 05/24/24 14:29 Temperature Pulse Rate Pulse Rate [Monitor] Respiratory Rate Blood Pressure 141/93 H Pulse Oximetry 98 99 100 Oxygen Delivery Oxygen Flow Rate 05/24/24 14:30 05/24/24 14:31 05/24/24 14:45 Temperature Pulse Rate Pulse Rate [Monitor] Respiratory Rate Blood Pressure 144/99 H 150/96 H Pulse Oximetry 100 100 98 Oxygen Delivery Oxygen Flow Rate 05/24/24 14:46 05/24/24 15:00 05/24/24 15:01 Temperature Pulse Rate 94 Pulse Rate [Monitor] Respiratory Rate 17 Blood Pressure 143/92 H Pulse Oximetry 97 97 97 Oxygen Delivery Oxygen Flow Rate 05/24/24 15:03 05/24/24 16:36 02/04/25 19:53 Temperature 97.6 F Pulse Rate 96 96 Pulse Rate [Monitor] Respiratory Rate 18 18 Blood Pressure 121/83 Pulse Oximetry 97 93 93 Oxygen Delivery Nasal Cannula Nasal Cannula Oxygen Flow Rate 2.5 2.5 05/24/24 19:53 05/24/24 20:23 05/24/24 20:50 Temperature 97.4 F L Pulse Rate 96 88 79 Pulse Rate [Monitor] Respiratory Rate 17 18 Blood Pressure 133/89 Pulse Oximetry 99 Oxygen Delivery Oxygen Flow Rate 05/24/24 20:50 05/24/24 21:00 05/25/24 00:00 Temperature Pulse Rate 84 83 Pulse Rate [Monitor] Respiratory Rate 18 Blood Pressure Pulse Oximetry 95 Oxygen Delivery Room Air Oxygen Flow Rate 05/25/24 02:50 05/25/24 02:58 05/25/24 04:00 Temperature Pulse Rate 78 80 82 Pulse Rate [Monitor] Respiratory Rate 18 18 Blood Pressure Pulse Oximetry Oxygen Delivery Oxygen Flow Rate 05/25/24 05:06 05/25/24 08:20 05/25/24 08:20 Temperature 97.4 F L Pulse Rate 94 84 Pulse Rate [Monitor] Respiratory Rate 18 18 Blood Pressure 128/85 Pulse Oximetry 97 99 Oxygen Delivery Nasal Cannula Oxygen Flow Rate 2 05/25/24 08:27 05/25/24 09:32 05/25/24 09:36 Temperature Pulse Rate 82 Pulse Rate [Monitor] 103 H Respiratory Rate 18 Blood Pressure Pulse Oximetry 86 L Oxygen Delivery Nasal Cannula Oxygen Flow Rate 1 05/25/24 09:36 Temperature Pulse Rate Pulse Rate [Monitor] Respiratory Rate Blood Pressure Pulse Oximetry 90 Oxygen Delivery Nasal Cannula Oxygen Flow Rate 1.5 Intake/Output Intake/Output: Intake & Output 05/22/24 05/23/24 05/24/24 05/25/24 23:59 23:59 23:59 23:59 Intake Total 1590 1840 Output Total 0 800 Balance 1590 1040 Meds/Results Medications: Active Medications Generic Name Dose Route Start Last Admin Trade Name Freq PRN Reason Stop Dose Admin Acetaminophen 650 mg 05/24/24 16:20 Acetaminophen 325 Mg Tablet PO Q6H PRN Mild Pain (1-3) or Fever Albuterol/Ipratropium 3 ml 05/24/24 20:00 05/25/24 08:19 Ipratropium 0.5 Mg/Albuterol Sulfate 2.5 Mg Ampul.Neb 3 Ml INHALATION 3 ml Q6HRT ROMAN Administration Enoxaparin Sodium 40 mg 05/25/24 09:00 05/25/24 09:19 Enoxaparin 40 Mg/0.4 Ml Syringe SUB-Q 40 mg DAILY ROAMN Administration Fluticasone Propionate 1 spray 05/25/24 09:00 05/25/24 09:19 Fluticasone Propionate 0.05% Na Spr 16 Gm Btl (*Bkc) NASAL 1 spray Q12HR ROMAN Administration Guaifenesin 1,200 mg 05/24/24 21:00 05/25/24 09:19 Guaifenesin 12 Hr 600 Mg Tabcr PO 1,200 mg Q12HR ROMAN Administration Ceftriaxone Sodium 1 gm in 50 mls @ 100 mls/hr 05/25/24 14:00 Rocephin 1 Gm/Ns 50 Ml IVPB Q24H ROMAN Azithromycin 500 mg in 250 mls @ 250 mls/hr 05/25/24 15:00 Zithromax IVPB Q24H ROMAN Potassium Chloride 40 meq/ 520 mls @ 130 mls/hr 05/25/24 06:53 05/25/24 09:19 Sodium Chloride IVPB 05/25/24 10:52 130 mls/hr ONCE ONE Administration Radiology Results: ITS Impressions Chest X-Ray 05/24/24 12:28 IMPRESSION: 1. No acute cardiopulmonary disease. Chest CT 05/24/24 14:10 IMPRESSION: 1. Mild emphysema with bilateral lower lobar pneumonia. Labs Labs: Laboratory Results - last 24 hr 05/24/24 05/24/24 05/24/24 11:25 11:53 12:20 WBC 8.3 RBC 3.98 L Hgb 15.9 Hct 42.4 MCV 106.5 H MCH 39.9 H MCHC 37.5 H RDW 12.5 Plt Count 251 MPV 10.5 H Immature Gran % (Auto) 0.6 H Neut % (Auto) 69.1 Lymph % (Auto) 16.6 L Lee % (Auto) 13.2 H Eos % (Auto) 0.1 Baso % (Auto) 0.4 Lymph # (Auto) 1.38 Lee # (Auto) 1.1 H Eos # (Auto) 0.0 Baso # (Auto) 0.0 Abs Immat Gran (auto) 0.05 H Absolute Neuts (auto) 5.8 Absolute Nucleated RBC 0.000 Nucleated RBC % 0.0 Platelet Estimate Adequate Anisocytosis 1+ Macrocytosis 1+ Schistocytes None seen PT 12.9 INR 0.9 APTT 26.5 D-Dimer < 0.27 Puncture Site Right radial ABG pH 7.581 H* ABG pCO2 36.2 ABG pO2 62.9 L ABG PO2/FiO2 Ratio 1.97 ABG HCO3 33.3 H ABG O2 Saturation 95.0 ABG O2 Content 19.0 ABG Base Excess 10.8 A-a Gradient 122.9 Oxyhemoglobin 89.6 L Total Hemoglobin 15.1 O2 Delivery Device Nasal cannula O2 Liters/Min 3.0 FiO2 32 Sodium 131 L Potassium 2.1 L* Chloride 78 L Carbon Dioxide > 40 H Anion Gap BUN 10 Creatinine 0.68 L Estim Creat Clear Calc Not Reportable Estimated GFR > 60 Glucose 117 H Lactic Acid 1.0 Calcium 8.8 Magnesium 1.5 L Total Bilirubin 1.0 AST 46 ALT 20 Alkaline Phosphatase 90 Troponin I < 0.012 C-Reactive Protein NT-Pro-B Natriuret Pep 102 H Total Protein 7.0 Albumin 3.7 Procalcitonin TSH (Reflex) 1.190 Urine Color Dark yellow Urine Appearance Clear Urine pH 6.5 Ur Specific [place] 1.017 Urine Protein 1+ H Urine Glucose (UA) Negative Urine Ketones Trace H Ur Blood (Man) Negative Urine Nitrate Negative Urine Bilirubin 1+ H Urine Urobilinogen 1.0 Leukocyte Esterase Rfl Trace H Urine RBC 0-2 Urine WBC 0-5 Ur Squamous Epith Cells Moderate Urine Bacteria None seen Urine Casts 6-10 Hyaline Casts Present Urine Mucus Present Nasal MRSA (PCR) Urine Opiates Screen Negative Urine Methadone Screen Negative Ur Barbiturates Screen Negative Ur Phencyclidine Scrn Negative Ur Amphetamine Screen Negative U Benzodiazepines Scrn Negative Urine Cocaine Screen Negative U Cannabinoids Screen Positive A Influenza A (RT-PCR) Negative Influenza B (RT-PCR) Negative RSV (RT-PCR) Negative SARS-CoV-2 RNA (RT-PCR) Negative 05/24/24 05/25/24 05/25/24 18:06 05:47 05:48 WBC 6.6 RBC 3.22 L Hgb 12.9 L D Hct 35.9 L MCV 111.5 H MCH 40.1 H MCHC 35.9 RDW 13.0 Plt Count 261 MPV 10.7 H Immature Gran % (Auto) Neut % (Auto) Lymph % (Auto) Lee % (Auto) Eos % (Auto) Baso % (Auto) Lymph # (Auto) Lee # (Auto) Eos # (Auto) Baso # (Auto) Abs Immat Gran (auto) Absolute Neuts (auto) Absolute Nucleated RBC Nucleated RBC % Platelet Estimate Anisocytosis Macrocytosis Schistocytes PT INR APTT D-Dimer Puncture Site ABG pH ABG pCO2 ABG pO2 ABG PO2/FiO2 Ratio ABG HCO3 ABG O2 Saturation ABG O2 Content ABG Base Excess A-a Gradient Oxyhemoglobin Total Hemoglobin O2 Delivery Device O2 Liters/Min FiO2 Sodium 129 L 134 L Potassium 2.3 L* 2.8 L* Chloride 88 L 93 L Carbon Dioxide 36 H 34 H Anion Gap 5 7 BUN 12 10 Creatinine 0.78 0.56 L Estim Creat Clear Calc 96 136 Estimated GFR > 60 > 60 Glucose 100 93 Lactic Acid Calcium 7.8 L 7.7 L Magnesium 2.0 Total Bilirubin AST ALT Alkaline Phosphatase Troponin I C-Reactive Protein 6.0 H NT-Pro-B Natriuret Pep Total Protein Albumin Procalcitonin 0.3 TSH (Reflex) Urine Color Urine Appearance Urine pH Ur Specific [place] Urine Protein Urine Glucose (UA) Urine Ketones Ur Blood (Man) Urine Nitrate Urine Bilirubin Urine Urobilinogen Leukocyte Esterase Rfl Urine RBC Urine WBC Ur Squamous Epith Cells Urine Bacteria Urine Casts Hyaline Casts Urine Mucus Nasal MRSA (PCR) Not detected Urine Opiates Screen Urine Methadone Screen Ur Barbiturates Screen Ur Phencyclidine Scrn Ur Amphetamine Screen U Benzodiazepines Scrn Urine Cocaine Screen U Cannabinoids Screen Influenza A (RT-PCR) Influenza B (RT-PCR) RSV (RT-PCR) SARS-CoV-2 RNA (RT-PCR) Quality VTE Prophylaxis VTE prophylaxis: pharmacologic ordered
[2024-05-25] MEDS: NICOTINE (*PBKC) 21 MG PATCH 1 PATCH TRANSDERM (12:29)
[2024-05-25] MEDS: AZITHROMYCIN 500 MG/NS 250 ML 500 MG/250 ML BAG 250 MG IVPB (14:37)
[2024-05-25 20:56] LABS: Anion Gap 5 mmol/L (4-12); Blood Urea Nitrogen 9 mg/dL (9-20); Calcium 7.9 mg/dL (8.4-10.2); Carbon Dioxide 30 mmol/L (22-30); Chloride 95 mmol/L (98-107); Estimated CRCL calculation 136 ml/min; Estimated Glomerular Filt Rate > 60; Glucose 127 mg/dL (65-110); Sodium 130 mmol/L (137-145)
[2024-05-26] VITALS (19 sets, daily range): BP systolic 159–185; BP diastolic 94–110; PULSE 93–117; RESP 16–20; TEMP 36.5–37.1; O2SAT 94–97
[2024-05-26] MEDS: IPRATROPIUM 0.5 MG/ALBUTEROL SULFATE 2.5 MG AMPUL.NEB 3 ML INHALATION ×4 (02:26→20:34)
[2024-05-26] MEDS: ACETAMINOPHEN 325 MG TABLET 650 MG PO ×2 (03:06→20:35)
[2024-05-26 07:54] LABS: Basophils Percent Auto 0.1 % (0.2-1.2); Eosinophils Percent Auto 0.3 % (0-4.4); Hematocrit 35.2 % (42.0-52.0); Hemoglobin 12.7 g/dL (14.0-18.0); Immature Granulocyte Absolute 0.03 K/mm3 (0.00-0.031); Immature Granulocyte Percent A 0.4 % (0-0.5); Lymphocytes Absolute Auto 1.53 K/mm3 (0.9-3.2); Lymphocytes Percent Auto 22.9 % (18.3-44.2); Mean Corpuscular HGB Conc 36.1 g/dl (32-36); Mean Corpuscular Hemoglobin 40.1 pg (26-34); Mean Platelet Volume 9.9 fl (7.4-10.4); Monocytes Absolute Auto 1.2 K/mm3 (0.1-0.6); Monocytes Percent Auto 18.4 % (2.6-8.5); Neutrophils Absolute Auto 3.9 K/mm3 (1.3-6.7); Neutrophils Percent Auto 57.9 % (45.5-73.1); Platelet Count Result 323 k/mm3 (150-375); Red Blood Count 3.17 M/mm3 (4.6-6.20); Red Cell Distribution Width 12.9 % (11.5-14.5); White Blood Count 6.7 K/mm3 (4.5-10.0)
[2024-05-26 08:06] LABS: Alanine Aminotransferase 14 U/L (6-50); Albumin Level 2.9 g/dL (3.5-5.1); Alkaline Phosphatase 68 U/L (38-126); Anion Gap 6 mmol/L (4-12); Aspartate Amino Transferase 28 U/L (17-59); Bilirubin,Total 0.8 mg/dL (0.2-1.3); Blood Urea Nitrogen 5 mg/dL (9-20); Calcium 7.9 mg/dL (8.4-10.2); Carbon Dioxide 31 mmol/L (22-30); Chloride 95 mmol/L (98-107); Estimated CRCL calculation 160 ml/min; Estimated Glomerular Filt Rate > 60; Glucose 95 mg/dL (65-110); Magnesium 1.5 mg/dL (1.6-2.3); Potassium 3.2 mmol/L (3.4-5.0); Sodium 132 mmol/L (137-145)
[2024-05-26] MEDS: NICOTINE (*PBKC) 21 MG PATCH 1 PATCH TRANSDERM (08:44)
[2024-05-26] MEDS: FLUTICASONE PROPIONATE 0.05% NA SPR 16 GM BTL (*BKC) 1 SPRAY NASAL ×2 (08:45→20:26)
[2024-05-26] MEDS: guaiFENesin 12 HR 600 MG TABCR 1200 MG PO ×2 (08:45→20:26)
[2024-05-26] MEDS: LOSARTAN POTASSIUM 25 MG TABLET PO (08:45)
[2024-05-26] MEDS: ENOXAPARIN 40 MG/0.4 ML SYRINGE SUB-Q (08:45)
[2024-05-26 09:01] LABS: Atypical Lymphocytes Present; Macrocytosis 1+ (NORMAL); Platelet Estimate Adequate (Adequate); Schistocytes None Seen
--- NOTE | 2024-05-26 12:56 | P.PNIM_ITS ---
Progress Note: A&P Assessment and Plan (1) Acute respiratory failure with hypoxia: Code(s): J96.01 - Acute respiratory failure with hypoxia Status: Acute Assessment and Plan: 05/25/24: * Supportive care with supplemental oxygen * Wean oxygen as tolerated. * Monitor and trend VS and labs 05/26/24: * Oxygen has been weaned to RA. * Monitor and trend VS and labs. (2) Pneumonia: Code(s): J18.9 - Pneumonia, unspecified organism Status: Acute Assessment and Plan: * Continue IV abx * Continue duonebs * Continue Mucinex (3) Hypertension: Code(s): I10 - Essential (primary) hypertension Status: Acute Assessment and Plan: 05/26/24: * BP's consistently elevated. * Start Losartan 25 mg daily. (4) Hypokalemia: Code(s): E87.6 - Hypokalemia Status: Acute Assessment and Plan: * Pt received 40 mEq po and 40 mEq IV yesterday for K+ of 2.1. * To receive another 40 mEq and 40 mEq today for 2.8. * Trend labs and VS. 05/26/24: * Improvement in K+ level at 3.2. * PO dose of 40 mEq ordered for 2100 tonight. * Will recheck in AM (5) Dehydration: Code(s): E86.0 - Dehydration Status: Resolved Assessment and Plan: Resolved (6) Hypomagnesemia: Code(s): E83.42 - Hypomagnesemia Status: Resolved Assessment and Plan: Resolved (7) Tobacco dependence: Code(s): F17.200 - Nicotine dependence, unspecified, uncomplicated Status: Acute Assessment and Plan: * nicotine patch * Counseled for nicotine abuse. Time Spent With Patient Time with patient: 15 - 25 minutes Subjective Date/time seen: 05/26/24 0910 Interval history: Pt was evaluated at the bedside today and he has some interval improvement with breathing. He has been weaned to 1L supplemental oxygen, but he has elevated BP today. Cultures for Legionella, Pneumococcal, and Mycoplasma all still pending. MRSA swab negative. Potassium today is improved to 3.2. He is started on Losartan 25 mg po daily for his BP's. Review of Systems Review of Systems: All systems reviewed & are unremarkable except as noted in HPI and below Exam Narrative: General: Mildly ill-appearing male sitting up in bed in no acute distress. HEENT: PERRL, EOMI. Neck: Supple. No JVD or lymphadenopathy. Respiratory: On RA now. Respirations are nonlabored he is speaking in full sentences. Rales at the right base with faint wheezing. Cardiovascular: Regular rate and rhythm with S1-S2. Gastrointestinal: Abdomen is soft, nontender, and nondistended with positive bowel sounds. Skin: Warm and dry. No rash or lesions on limited exam. Extremities: No cyanosis, clubbing, or edema. Radial and pedal pulses intact. Neurological: Alert. Cranial nerves 2-12 are grossly intact. No gross focal deficits to casual conversation. Psychiatric: Pleasant and cooperative with normal mood and affect. Judgment and insight intact. Objective Data Vital Signs Vital Signs: Vital Signs - 24 hr 05/25/24 14:00 05/25/24 14:42 05/25/24 14:44 Temperature 97.6 F Pulse Rate 90 Pulse Rate [Monitor] Respiratory Rate 18 Blood Pressure 130/78 Pulse Oximetry 98 96 96 Oxygen Delivery Nasal Cannula Nasal Cannula Oxygen Flow Rate 1 0.5 05/25/24 14:44 05/25/24 14:53 05/25/24 16:00 Temperature Pulse Rate 95 97 102 H Pulse Rate [Monitor] Respiratory Rate 18 18 Blood Pressure Pulse Oximetry Oxygen Delivery Oxygen Flow Rate 05/25/24 18:06 05/25/24 20:00 05/25/24 20:00 Temperature Pulse Rate 105 H Pulse Rate [Monitor] 104 H 103 H Respiratory Rate Blood Pressure Pulse Oximetry Oxygen Delivery Oxygen Flow Rate 05/25/24 20:14 05/25/24 20:16 05/25/24 20:25 Temperature Pulse Rate 106 H 102 H Pulse Rate [Monitor] Respiratory Rate 18 18 Blood Pressure Pulse Oximetry 93 Oxygen Delivery Room Air Oxygen Flow Rate 05/25/24 21:56 05/26/24 00:00 05/26/24 01:43 Temperature 98.7 F 98.1 F Pulse Rate 116 H 107 H 106 H Pulse Rate [Monitor] Respiratory Rate 18 16 Blood Pressure 164/94 H 165/99 H Pulse Oximetry 93 95 Oxygen Delivery Oxygen Flow Rate 05/26/24 02:26 05/26/24 02:35 05/26/24 04:00 Temperature Pulse Rate 101 H 101 H 101 H Pulse Rate [Monitor] Respiratory Rate 18 18 Blood Pressure Pulse Oximetry Oxygen Delivery Oxygen Flow Rate 05/26/24 06:00 05/26/24 08:01 05/26/24 08:01 Temperature 98.1 F Pulse Rate 102 H 93 93 Pulse Rate [Monitor] Respiratory Rate 16 20 20 Blood Pressure 166/101 H Pulse Oximetry 94 96 Oxygen Delivery Room Air Oxygen Flow Rate 05/26/24 08:12 05/26/24 08:45 Temperature Pulse Rate 101 H 93 Pulse Rate [Monitor] Respiratory Rate 20 Blood Pressure Pulse Oximetry Oxygen Delivery Oxygen Flow Rate Intake/Output Intake/Output: Intake & Output 05/23/24 05/24/24 05/25/24 05/26/24 23:59 23:59 23:59 23:59 Intake Total 1590 4444 1710 Output Total 0 1650 1250 Balance 1590 2794 460 Meds/Results Medications: Active Medications Generic Name Dose Route Start Last Admin Trade Name Freq PRN Reason Stop Dose Admin Acetaminophen 650 mg 05/24/24 16:20 05/26/24 03:06 Acetaminophen 325 Mg Tablet PO 650 mg Q6H PRN Administration Mild Pain (1-3) or Fever Albuterol/Ipratropium 3 ml 05/24/24 20:00 05/26/24 07:59 Ipratropium 0.5 Mg/Albuterol Sulfate 2.5 Mg Ampul.Neb 3 Ml INHALATION 3 ml Q6HRT ROMAN Administration Enoxaparin Sodium 40 mg 05/25/24 09:00 05/26/24 08:45 Enoxaparin 40 Mg/0.4 Ml Syringe SUB-Q 40 mg DAILY ROMAN Administration Fluticasone Propionate 1 spray 05/25/24 09:00 05/26/24 08:45 Fluticasone Propionate 0.05% Na Spr 16 Gm Btl (*Bkc) NASAL 1 spray Q12HR ROMAN Administration Guaifenesin 1,200 mg 05/24/24 21:00 05/26/24 08:45 Guaifenesin 12 Hr 600 Mg Tabcr PO 1,200 mg Q12HR ROMAN Administration Ceftriaxone Sodium 1 gm in 50 mls @ 100 mls/hr 05/25/24 14:00 05/25/24 13:54 Rocephin 1 Gm/Ns 50 Ml IVPB Infused Q24H ROMAN Infusion Azithromycin 500 mg in 250 mls @ 250 mls/hr 05/25/24 15:00 05/25/24 15:50 Zithromax IVPB Infused Q24H ROMAN Infusion Losartan Potassium 25 mg 05/26/24 09:00 05/26/24 08:45 Losartan Potassium 25 Mg Tablet PO 25 mg DAILY ROMAN Administration Nicotine 1 patch 05/25/24 09:00 05/26/24 08:44 Nicotine (*Pbkc) 21 Mg Patch TRANSDERM 1 patch DAILY ROMAN Administration Radiology Results: ITS Impressions Chest X-Ray 05/24/24 12:28 IMPRESSION: 1. No acute cardiopulmonary disease. Chest CT 05/24/24 14:10 IMPRESSION: 1. Mild emphysema with bilateral lower lobar pneumonia. Labs Labs: Laboratory Results - last 24 hr 05/25/24 05/25/24 05/26/24 20:32 20:33 07:44 WBC 6.7 RBC 3.17 L Hgb 12.7 L Hct 35.2 L MCV 111.0 H MCH 40.1 H MCHC 36.1 H RDW 12.9 Plt Count 323 MPV 9.9 Immature Gran % (Auto) 0.4 Neut % (Auto) 57.9 Lymph % (Auto) 22.9 [place] % (Auto) 18.4 H Eos % (Auto) 0.3 Baso % (Auto) 0.1 L Lymph # (Auto) 1.53 [place] # (Auto) 1.2 H Eos # (Auto) 0.0 Baso # (Auto) 0.0 Abs Immat Gran (auto) 0.03 Absolute Neuts (auto) 3.9 Absolute Nucleated RBC 0.000 Nucleated RBC % 0.0 Atypical Lymphocytes Present Platelet Estimate Adequate Macrocytosis 1+ Schistocytes None seen Sodium Cancelled 130 L 132 L Potassium Cancelled 3.0 L 3.2 L Chloride Cancelled 95 L 95 L Carbon Dioxide Cancelled 30 31 H Anion Gap Cancelled 5 6 BUN Cancelled 9 5 L Creatinine Cancelled 0.56 L 0.46 L Estim Creat Clear Calc Cancelled 136 160 Estimated GFR Cancelled > 60 > 60 Glucose Cancelled 127 H 95 Calcium Cancelled 7.9 L 7.9 L Magnesium 1.5 L Total Bilirubin 0.8 AST 28 ALT 14 Alkaline Phosphatase 68 Total Protein 6.0 L Albumin 2.9 L Quality VTE Prophylaxis VTE prophylaxis: pharmacologic ordered
[2024-05-26] MEDS: AZITHROMYCIN 500 MG/NS 250 ML 500 MG/250 ML BAG 250 MG IVPB (14:04)
[2024-05-26] MEDS: POTASSIUM CHLORIDE 20 MEQ ER TABLET 40 MEQ PO (20:27)
[2024-05-27] VITALS (18 sets, daily range): BP systolic 155–187; BP diastolic 90–113; PULSE 98–117; RESP 18–20; TEMP 36.7–36.9; O2SAT 95–100
[2024-05-27] MEDS: IPRATROPIUM 0.5 MG/ALBUTEROL SULFATE 2.5 MG AMPUL.NEB 3 ML INHALATION ×4 (03:25→19:58)
[2024-05-27 09:01] LABS: Basophils Percent Auto 0.1 % (0.2-1.2); Eosinophils Percent Auto 0.3 % (0-4.4); Hematocrit 38.2 % (42.0-52.0); Hemoglobin 13.8 g/dL (14.0-18.0); Immature Granulocyte Absolute 0.03 K/mm3 (0.00-0.031); Immature Granulocyte Percent A 0.4 % (0-0.5); Lymphocytes Percent Auto 20.4 % (18.3-44.2); Mean Corpuscular HGB Conc 36.1 g/dl (32-36); Mean Corpuscular Hemoglobin 39.7 pg (26-34); Mean Corpuscular Volume 109.8 fl (80-100); Mean Platelet Volume 9.8 fl (7.4-10.4); Monocytes Absolute Auto 1.2 K/mm3 (0.1-0.6); Monocytes Percent Auto 17.9 % (2.6-8.5); Neutrophils Absolute Auto 4.2 K/mm3 (1.3-6.7); Neutrophils Percent Auto 60.9 % (45.5-73.1); Platelet Count Result 431 k/mm3 (150-375); Red Blood Count 3.48 M/mm3 (4.6-6.20); Red Cell Distribution Width 12.9 % (11.5-14.5); White Blood Count 6.9 K/mm3 (4.5-10.0)
[2024-05-27] MEDS: NICOTINE (*PBKC) 21 MG PATCH 1 PATCH TRANSDERM (09:01)
[2024-05-27] MEDS: guaiFENesin 12 HR 600 MG TABCR 1200 MG PO ×2 (09:01→21:46)
[2024-05-27] MEDS: LOSARTAN POTASSIUM 25 MG TABLET PO (09:01)
[2024-05-27] MEDS: ENOXAPARIN 40 MG/0.4 ML SYRINGE SUB-Q (09:01)
[2024-05-27] MEDS: FLUTICASONE PROPIONATE 0.05% NA SPR 16 GM BTL (*BKC) 1 SPRAY NASAL ×2 (09:01→21:46)
[2024-05-27 09:18] LABS: Alanine Aminotransferase 16 U/L (6-50); Albumin Level 3.2 g/dL (3.5-5.1); Alkaline Phosphatase 79 U/L (38-126); Anion Gap 9 mmol/L (4-12); Aspartate Amino Transferase 30 U/L (17-59); Bilirubin,Total 0.9 mg/dL (0.2-1.3); Blood Urea Nitrogen 3 mg/dL (9-20); Calcium 8.4 mg/dL (8.4-10.2); Carbon Dioxide 26 mmol/L (22-30); Chloride 93 mmol/L (98-107); Estimated CRCL calculation 166 ml/min; Estimated Glomerular Filt Rate > 60; Glucose 93 mg/dL (65-110); Magnesium 1.3 mg/dL (1.6-2.3); Potassium 3.4 mmol/L (3.4-5.0); Sodium 128 mmol/L (137-145)
[2024-05-27 09:43] LABS: Burr Cells 1+; Macrocytosis 1+ (NORMAL); Platelet Estimate Increased (Adequate)
[2024-05-27 09:44] LABS: Schistocytes None Seen
[2024-05-27] MEDS: CEFEPIME 2 GM/NS 50 ML 2 GM/50 ML BAG IVPB ×2 (11:47→17:44)
[2024-05-27] MEDS: SODIUM CHLORIDE 0.9% IV 250 ML 100 ML IV CONT (11:47)
--- NOTE | 2024-05-27 11:56 | P.PNIM_ITS ---
Progress Note: A&P Assessment and Plan (1) Fall: Code(s): W19.XXXA - Unspecified fall, initial encounter Status: Acute Assessment and Plan: 05/27/24: * Pt reported fall shortly after midnight 05/27/24 from weakness in legs when ambulating to bathroom. * No overnight physician/JEAN-CLAUDE assessment as it was not reported. * Pt reported fell to knees and crawled into bathroom after the fall. * No s/s of acute trauma to the head/body. * Pt placed on fall precautions. * As he complained of weakness in his BLE, PT/OT is ordered for pt. * Daytime RN to complete necessary paperwork from the fall. (2) Weakness: Code(s): R53.1 - Weakness Status: Acute Assessment and Plan: 05/27/24: * Fall precautions * PT and OT ordered. * See #1 above. (3) Sepsis: Code(s): A41.9 - Sepsis, unspecified organism Status: Acute Assessment and Plan: 05/27/24: * Pt noted to be overtly tachycardic today and hypertensive. * CTA PE protocol is ordered of chest and pt is without any vascular injury or any PE, but does show a worsening of his Bilateral Lower lobe PNA. * Lactic acid and Blood cultures x2 are ordered as we have abnormal vs, and known source of infection. * Abx changed from Rocephin to Cefepime 2G Q8 hrs to include coverage for Pseudomonas and he will remain on Azithromycin for atypicals. * Incentive spirometry ordered. * Continue to monitor and trend VS. * Continue Telemetry (4) Acute respiratory failure with hypoxia: Code(s): J96.01 - Acute respiratory failure with hypoxia Status: Acute Assessment and Plan: 05/25/24: * Supportive care with supplemental oxygen * Wean oxygen as tolerated. * Monitor and trend VS and labs 05/26/24: * Oxygen has been weaned to RA. * Monitor and trend VS and labs. 05/27/24: * Pt remains on Room air despite the acute worsening of the PNA appearance on CXR. * Continue to trend VS and labs as pt is now meeting Sepsis criteria. * Supportive care as needed. * Antibiotics are changed from Rocephin to Cefepime and Azithromycin (5) Pneumonia: Code(s): J18.9 - Pneumonia, unspecified organism Status: Acute Assessment and Plan: * Continue IV abx * Continue duonebs * Continue Mucinex 05/27/24: * Change abx to Cefepime from Rocephin to provide Pseudomonal coverage. * Sepsis workup initiated as there appears to be worsening of PNA on CT scan. * Continue Duonebs (6) Hyponatremia: Code(s): E87.1 - Hypo-osmolality and hyponatremia Status: Acute Assessment and Plan: 05/27/24: * Sodium this AM is low at 128. * IVF of NS at 100 ml/hr initiated. * Continue to monitor and trend labs and VS. * Check osmolalities and urine sodium as pt has no insensible loss * Accurate I&O * Consider fluid restriction if needed. (7) Hypertension: Code(s): I10 - Essential (primary) hypertension Status: Acute Assessment and Plan: 05/26/24: * BP's consistently elevated. * Start Losartan 25 mg daily. 05/27/24: * Worsening of HTN overnight into this AM, trending 185/110-->187/113-->169/106 despite the addition of Losartan yesterday at 25 mg daily. * Metoprolol Succinate 37.5 mg po daily initiated for BP support and rate support. Consider dose de-escalation if needed. (8) Hypokalemia: Code(s): E87.6 - Hypokalemia Status: Acute Assessment and Plan: * Pt received 40 mEq po and 40 mEq IV yesterday for K+ of 2.1. * To receive another 40 mEq and 40 mEq today for 2.8. * Trend labs and VS. 05/26/24: * Improvement in K+ level at 3.2. * PO dose of 40 mEq ordered for 2100 tonight. * Will recheck in AM 05/27/24: * Potassium is stable today at 3.4. * No additional replacement is needed. (9) Dehydration: Code(s): E86.0 - Dehydration Status: Resolved Assessment and Plan: Resolved (10) Hypomagnesemia: Code(s): E83.42 - Hypomagnesemia Status: Resolved Assessment and Plan: Resolved (11) Tobacco dependence: Code(s): F17.200 - Nicotine dependence, unspecified, uncomplicated Status: Chronic Assessment and Plan: * nicotine patch * Counseled for nicotine abuse. Time Spent With Patient Time with patient: 25 - 35 minutes Subjective Date/time seen: 05/27/24 0930 Interval history: Pt examined today telling both the RN Dutch and myself that he fell overnight. He reports that at approximately 0030, he was attempting to ambulate to the bathroom, felt very weak and his legs gave out on him, causing him to fall. He states he landed on his knees and then proceeded to crawl into the bathroom. The night RN did not relay this info to daytime RN. Pt denies any acute injury or pa in in the knees or anywhere else from the fall and he does not show any acute injury to the head or neck. As he complains of weakness, I will have PT and OT evaluate him and he will need fall precaution safety. He has no other complaints, symptoms or injuries to discuss and he is upset that I have decided not to discharge him today. It is noted this AM that when I look at his VS, he was overtly tachycardic and hypertensive overnight. CTA PE protocol was performed stat and results show a worsening of his BLL PNA and no PE. No signs of vascular injury on CTA. He is started on additional BP management with Metoprolol Succinate 37.5 mg daily with first dose now to help control his BP as well as his rate. In addition, as he remains tachycardic and we have known source of infection, will consider Sepsis as an additional dx. Abx are changed to Cefepime from Rocephin to add Pseudomonal Coverage. Will continue Azithromycin for atypicals. Incentive spirometry is ordered and will continue to provide supplemental support as needed, but currently on Room air. Review of pt's labs this AM show a stable Potassium, but new Hyponatremia at 128. Normal saline is re-initiated at 100 ml/hr. Review of Systems Review of Systems: All systems reviewed & are unremarkable except as noted in HPI and below Exam Narrative: General: Mildly ill-appearing male sitting up in bed in no acute distress. He is upset that he will not be discharged today. HEENT: PERRL, EOMI. Atraumatic and normocephalic head. MMM Neck: Supple. No JVD or lymphadenopathy. No midline tenderness, stepoff, crepitus. Respiratory: On RA now. Respirations are nonlabored he is speaking in full sentences. Rales at the right base with faint wheezing. Cardiovascular: Regular rate and rhythm with S1-S2. Gastrointestinal: Abdomen is soft, nontender, and nondistended with positive bowel sounds. Skin: Warm and dry. No rash or lesions on limited exam. No bruising noted to the bilateral knees. Extremities: No cyanosis, clubbing, or edema. Radial and pedal pulses intact. Grossly intact FROM. Neurological: Alert. Cranial nerves 2-12 are grossly intact. No focal deficits. Psychiatric: Pleasant and cooperative with normal mood and affect. Judgment and insight intact. Objective Data Vital Signs Vital Signs: Vital Signs - 24 hr 05/26/24 12:00 05/26/24 13:58 05/26/24 14:00 Temperature Pulse Rate 105 H 102 H 102 H Pulse Rate [Monitor] Respiratory Rate 20 20 Blood Pressure Pulse Oximetry 96 Oxygen Delivery Room Air 05/26/24 14:00 05/26/24 14:06 05/26/24 16:00 Temperature 97.7 F Pulse Rate 112 H 108 H Pulse Rate [Monitor] 110 H Respiratory Rate 18 20 Blood Pressure 159/95 H Pulse Oximetry 97 Oxygen Delivery 05/26/24 16:00 05/26/24 20:00 05/26/24 20:00 Temperature Pulse Rate 111 H 107 H Pulse Rate [Monitor] 107 H Respiratory Rate 18 Blood Pressure 184/94 H Pulse Oximetry 95 Oxygen Delivery Room Air 05/26/24 20:00 05/26/24 20:35 05/26/24 20:36 Temperature Pulse Rate 107 H 110 H Pulse Rate [Monitor] Respiratory Rate 20 Blood Pressure Pulse Oximetry 95 Oxygen Delivery Room Air 05/26/24 20:44 05/26/24 20:57 05/27/24 00:00 Temperature 98.7 F Pulse Rate 110 H 117 H Pulse Rate [Monitor] 110 H Respiratory Rate 20 18 Blood Pressure 185/110 H Pulse Oximetry 95 Oxygen Delivery 05/27/24 00:00 05/27/24 03:25 05/27/24 04:00 Temperature Pulse Rate 110 H 102 H Pulse Rate [Monitor] 105 H Respiratory Rate 20 Blood Pressure 187/113 H Pulse Oximetry Oxygen Delivery 05/27/24 04:00 05/27/24 04:46 05/27/24 07:16 Temperature 98.1 F Pulse Rate 105 H 109 H Pulse Rate [Monitor] Respiratory Rate 20 Blood Pressure 169/106 H Pulse Oximetry 95 97 Oxygen Delivery Room Air 05/27/24 07:16 05/27/24 07:38 05/27/24 08:00 Temperature Pulse Rate 101 H 112 H 117 H Pulse Rate [Monitor] Respiratory Rate 20 20 Blood Pressure Pulse Oximetry Oxygen Delivery Intake/Output Intake/Output: Intake & Output 05/24/24 05/25/24 05/26/24 05/27/24 23:59 23:59 23:59 23:59 Intake Total 1590 4444 2730 730 Output Total 0 1650 2050 Balance 1590 2794 680 730 Meds/Results Medications: Active Medications Generic Name Dose Route Start Last Admin Trade Name Freq PRN Reason Stop Dose Admin Acetaminophen 650 mg 05/24/24 16:20 05/26/24 20:35 Acetaminophen 325 Mg Tablet PO 650 mg Q6H PRN Administration Mild Pain (1-3) or Fever Albuterol/Ipratropium 3 ml 05/24/24 20:00 05/27/24 07:16 Ipratropium 0.5 Mg/Albuterol Sulfate 2.5 Mg Ampul.Neb 3 Ml INHALATION 3 ml Q6HRT ROMAN Administration Enoxaparin Sodium 40 mg 05/25/24 09:00 05/27/24 09:01 Enoxaparin 40 Mg/0.4 Ml Syringe SUB-Q 40 mg DAILY ROMAN Administration Fluticasone Propionate 1 spray 05/25/24 09:00 05/27/24 09:01 Fluticasone Propionate 0.05% Na Spr 16 Gm Btl (*Bkc) NASAL 1 spray Q12HR ROMAN Administration Guaifenesin 1,200 mg 05/24/24 21:00 05/27/24 09:01 Guaifenesin 12 Hr 600 Mg Tabcr PO 1,200 mg Q12HR ROMAN Administration Hydralazine HCl 10 mg 05/27/24 06:47 Hydralazine 10 Mg Tablet PO QID PRN Hypertension Azithromycin 500 mg in 250 mls @ 250 mls/hr 05/25/24 15:00 05/26/24 15:04 Zithromax IVPB Infused Q24H ROMAN Infusion Sodium Chloride 250 mls @ 100 mls/hr 05/27/24 09:36 05/27/24 11:47 Normal Saline Iv IV CONT 05/27/24 12:05 100 mls/hr .Q2H30M ONE Administration Cefepime HCl 2 gm in 50 mls @ 100 mls/hr 05/27/24 10:00 05/27/24 11:47 Maxipime 2 Gm/Ns 50 Ml IVPB 100 mls/hr Q8H ROMAN Administration Losartan Potassium 25 mg 05/26/24 09:00 05/27/24 09:01 Losartan Potassium 25 Mg Tablet PO 25 mg DAILY ROMAN Administration Miscellaneous Information 0 each 05/27/24 00:01 05/27/24 07:46 Please Give Specific Parameter For Hydralazine XX 06/26/24 00:00 Not Given CLARIFY ROMAN Nicotine 1 patch 05/25/24 09:00 05/27/24 09:01 Nicotine (*Pbkc) 21 Mg Patch TRANSDERM 1 patch DAILY ROMAN Administration Radiology Results: ITS Impressions Chest X-Ray 05/24/24 12:28 IMPRESSION: 1. No acute cardiopulmonary disease. Chest CT 05/24/24 14:10 IMPRESSION: 1. Mild emphysema with bilateral lower lobar pneumonia. Chest CTA 05/27/24 08:26 IMPRESSION: 1. No pulmonary embolus. 2. Worsened airspace opacities in the lower lobes, consistent with a combination of pneumonia and atelectasis. 3. Worsened small pleural effusions. 4. Mild emphysema. 5. Mild mediastinal lymphadenopathy, likely reactive. 6. Worsened small pericardial effusion. Labs Labs: Laboratory Results - last 24 hr 05/27/24 08:50 WBC 6.9 RBC 3.48 L Hgb 13.8 L Hct 38.2 L MCV 109.8 H MCH 39.7 H MCHC 36.1 H RDW 12.9 Plt Count 431 H MPV 9.8 Immature Gran % (Auto) 0.4 Neut % (Auto) 60.9 Lymph % (Auto) 20.4 [place] % (Auto) 17.9 H Eos % (Auto) 0.3 Baso % (Auto) 0.1 L Lymph # (Auto) 1.40 [place] # (Auto) 1.2 H Eos # (Auto) 0.0 Baso # (Auto) 0.0 Abs Immat Gran (auto) 0.03 Absolute Neuts (auto) 4.2 Absolute Nucleated RBC 0.000 Nucleated RBC % 0.0 Platelet Estimate Increased Macrocytosis 1+ [place] Cells 1+ Schistocytes None seen Sodium 128 L Potassium 3.4 Chloride 93 L Carbon Dioxide 26 Anion Gap 9 BUN 3 L Creatinine 0.44 L Estim Creat Clear Calc 166 Estimated GFR > 60 Glucose 93 Calcium 8.4 Magnesium 1.3 L Total Bilirubin 0.9 AST 30 ALT 16 Alkaline Phosphatase 79 Total Protein 7.0 Albumin 3.2 L Quality VTE Prophylaxis VTE prophylaxis: pharmacologic ordered
[2024-05-27] MEDS: METOPROLOL SUCCINATE EXT REL 12.5 MG, METOPROLOL SUCCINATE EXT REL 25 MG 37.5 MG PO (13:09)
[2024-05-27] MEDS: AZITHROMYCIN 500 MG/NS 250 ML 500 MG/250 ML BAG 250 MG IVPB (14:38)
[2024-05-27 15:31] LABS: Sodium Urine Random 104 meq/L
[2024-05-27] MEDS: ACETAMINOPHEN 325 MG TABLET 650 MG PO (21:51)
[2024-05-28] VITALS (7 sets, daily range): BP systolic 151–167; BP diastolic 97–104; PULSE 84–113; RESP 18–20; TEMP 36.7; O2SAT 96–97
[2024-05-28] MEDS: LOSARTAN POTASSIUM 25 MG TABLET PO (01:56)
[2024-05-28] MEDS: CEFEPIME 2 GM/NS 50 ML 2 GM/50 ML BAG IVPB ×2 (01:56→09:05)
[2024-05-28] MEDS: MAGNESIUM SULFATE 3GM/D5W100ML 3 GM/100 ML BAG IVPB (02:32)
--- NOTE | 2024-05-28 04:07 | PC.NURSE ---
05/27/24 2000: DURING ASSESSMENT I SPOKE W/ PT RE: EVENTS OF 05/26/24 MANAGER RE: A REPORTED UNWITNESSED FALL. PT STATES, I DON'T KNOW IF I REALLY FELL...IT WASN'T REALLY A FALL, I JUST REMEMBER I GOT UP. I HAD TO GO TO THE BATHROOM AND I GUESS I GOT DOWN ON MY KNEES SOMEHOW. THE PATIENT DID NOT VERBALIZE OR REPORT A FALL TO DOCUMENTING RN DURING THE NOC SHIFT 05/26/24 BUT LATER RELATED THIS TO DAY SHIFT 05/27/24 RN AND PROVIDER. PT DISPLAYED NO VISIBLE EVIDENCE OF FALL AND DID NOT VERBALIZE A FALL OR INJURY.
[2024-05-28 05:38] LABS: Basophils Percent Auto 0.3 % (0.2-1.2); Eosinophils Absolute Auto 0.1 K/mm3 (0-0.3); Eosinophils Percent Auto 0.8 % (0-4.4); Hematocrit 36.2 % (42.0-52.0); Hemoglobin 12.7 g/dL (14.0-18.0); Immature Granulocyte Absolute 0.03 K/mm3 (0.00-0.031); Immature Granulocyte Percent A 0.5 % (0-0.5); Lymphocytes Absolute Auto 1.27 K/mm3 (0.9-3.2); Lymphocytes Percent Auto 21.3 % (18.3-44.2); Mean Corpuscular HGB Conc 35.1 g/dl (32-36); Mean Corpuscular Hemoglobin 39.8 pg (26-34); Mean Corpuscular Volume 113.5 fl (80-100); Mean Platelet Volume 9.9 fl (7.4-10.4); Monocytes Absolute Auto 1.2 K/mm3 (0.1-0.6); Monocytes Percent Auto 20.5 % (2.6-8.5); Neutrophils Absolute Auto 3.4 K/mm3 (1.3-6.7); Neutrophils Percent Auto 56.6 % (45.5-73.1); Platelet Count Result 462 k/mm3 (150-375); Red Blood Count 3.19 M/mm3 (4.6-6.20); Red Cell Distribution Width 12.9 % (11.5-14.5)
[2024-05-28] MEDS: IPRATROPIUM 0.5 MG/ALBUTEROL SULFATE 2.5 MG AMPUL.NEB 3 ML INHALATION (07:16)
[2024-05-28] MEDS: NICOTINE (*PBKC) 21 MG PATCH 1 PATCH TRANSDERM (09:05)
[2024-05-28] MEDS: ENOXAPARIN 40 MG/0.4 ML SYRINGE SUB-Q (09:06)
[2024-05-28] MEDS: FLUTICASONE PROPIONATE 0.05% NA SPR 16 GM BTL (*BKC) 1 SPRAY NASAL (09:06)
[2024-05-28] MEDS: LOSARTAN POTASSIUM 25 MG TABLET 50 MG PO (09:07)
[2024-05-28] MEDS: METOPROLOL SUCCINATE EXT REL 12.5 MG, METOPROLOL SUCCINATE EXT REL 25 MG 37.5 MG PO (09:07)
[2024-05-28] MEDS: guaiFENesin 12 HR 600 MG TABCR 1200 MG PO (09:07)
[2024-05-28 10:39] LABS: Alanine Aminotransferase 13 U/L (6-50); Albumin Level 2.5 g/dL (3.5-5.1); Alkaline Phosphatase 60 U/L (38-126); Anion Gap 8 mmol/L (4-12); Aspartate Amino Transferase 26 U/L (17-59); Bilirubin,Total 0.8 mg/dL (0.2-1.3); Blood Urea Nitrogen 4 mg/dL (9-20); Calcium 8.4 mg/dL (8.4-10.2); Carbon Dioxide 26 mmol/L (22-30); Chloride 99 mmol/L (98-107); Estimated CRCL calculation 145 ml/min; Estimated Glomerular Filt Rate > 60; Glucose 93 mg/dL (65-110); Magnesium 2.3 mg/dL (1.6-2.3); Potassium 3.8 mmol/L (3.4-5.0); Sodium 133 mmol/L (137-145)
--- NOTE | 2024-05-28 12:20 | P.DS_ITS ---
DS: Admitting Diagnosis Discharge Date 05/28/2024 Admitting Diagnosis Shortness of breath and weakness DS: Discharge Diagnosis Discharge Diagnosis (1) Fall: Code(s): W19.XXXA - Unspecified fall, initial encounter Status: Acute Assessment and Plan: 05/27/24: * Pt reported fall shortly after midnight 05/27/24 from weakness in legs when ambulating to bathroom. * No overnight physician/JEAN-CLAUDE assessment as it was not reported. * Pt reported fell to knees and crawled into bathroom after the fall. * No s/s of acute trauma to the head/body. * Pt placed on fall precautions. * As he complained of weakness in his BLE, PT/OT is ordered for pt. * Daytime RN to complete necessary paperwork from the fall. (2) Weakness: Code(s): R53.1 - Weakness Status: Acute Assessment and Plan: 05/27/24: * Fall precautions * PT and OT ordered. * See #1 above. (3) Sepsis: Code(s): A41.9 - Sepsis, unspecified organism Status: Acute Assessment and Plan: 05/27/24: * Pt noted to be overtly tachycardic today and hypertensive. * CTA PE protocol is ordered of chest and pt is without any vascular injury or any PE, but does show a worsening of his Bilateral Lower lobe PNA. * Lactic acid and Blood cultures x2 are ordered as we have abnormal vs, and known source of infection. * Abx changed from Rocephin to Cefepime 2G Q8 hrs to include coverage for Pseudomonas and he will remain on Azithromycin for atypicals. * Incentive spirometry ordered. * Continue to monitor and trend VS. * Continue Telemetry (4) Acute respiratory failure with hypoxia: Code(s): J96.01 - Acute respiratory failure with hypoxia Status: Acute Assessment and Plan: 05/25/24: * Supportive care with supplemental oxygen * Wean oxygen as tolerated. * Monitor and trend VS and labs 05/26/24: * Oxygen has been weaned to RA. * Monitor and trend VS and labs. 05/27/24: * Pt remains on Room air despite the acute worsening of the PNA appearance on CXR. * Continue to trend VS and labs as pt is now meeting Sepsis criteria. * Supportive care as needed. * Antibiotics are changed from Rocephin to Cefepime and Azithromycin (5) Pneumonia: Code(s): J18.9 - Pneumonia, unspecified organism Status: Acute Assessment and Plan: * Continue IV abx * Continue duonebs * Continue Mucinex 05/27/24: * Change abx to Cefepime from Rocephin to provide Pseudomonal coverage. * Sepsis workup initiated as there appears to be worsening of PNA on CT scan. * Continue Duonebs (6) Hyponatremia: Code(s): E87.1 - Hypo-osmolality and hyponatremia Status: Acute Assessment and Plan: 05/27/24: * Sodium this AM is low at 128. * IVF of NS at 100 ml/hr initiated. * Continue to monitor and trend labs and VS. * Check osmolalities and urine sodium as pt has no insensible loss * Accurate I&O * Consider fluid restriction if needed. (7) Hypertension: Code(s): I10 - Essential (primary) hypertension Status: Acute Assessment and Plan: 05/26/24: * BP's consistently elevated. * Start Losartan 25 mg daily. 05/27/24: * Worsening of HTN overnight into this AM, trending 185/110-->187/113-->169/106 despite the addition of Losartan yesterday at 25 mg daily. * Metoprolol Succinate 37.5 mg po daily initiated for BP support and rate support. Consider dose de-escalation if needed. (8) Hypokalemia: Code(s): E87.6 - Hypokalemia Status: Acute Assessment and Plan: * Pt received 40 mEq po and 40 mEq IV yesterday for K+ of 2.1. * To receive another 40 mEq and 40 mEq today for 2.8. * Trend labs and VS. 05/26/24: * Improvement in K+ level at 3.2. * PO dose of 40 mEq ordered for 2100 tonight. * Will recheck in AM 05/27/24: * Potassium is stable today at 3.4. * No additional replacement is needed. (9) Dehydration: Code(s): E86.0 - Dehydration Status: Resolved Assessment and Plan: Resolved (10) Hypomagnesemia: Code(s): E83.42 - Hypomagnesemia Status: Resolved Assessment and Plan: Resolved (11) Tobacco dependence: Code(s): F17.200 - Nicotine dependence, unspecified, uncomplicated Status: Chronic Assessment and Plan: * nicotine patch * Counseled for nicotine abuse. DS: Summary Hospital Course Hospital Course: Pt examined today telling both the RN Dutch and myself that he fell overnight. He reports that at approximately 0030, he was attempting to ambulate to the bathroom, felt very weak and his legs gave out on him, causing him to fall. He states he landed on his knees and then proceeded to crawl into the bathroom. The night RN did not relay this info to daytime RN. Pt denies any acute injury or pain in the knees or anywhere else from the fall and he does not show any acute injury to the head or neck. As he complains of weakness, I will have PT and OT evaluate him and he will need fall precaution safety. He has no other complaints, symptoms or injuries to discuss and he is upset that I have decided not to discharge him today. It is noted this AM that when I look at his VS, he was overtly tachycardic and hypertensive overnight. CTA PE protocol was performed stat and results show a worsening of his BLL PNA and no PE. No signs of vascular injury on CTA. He is started on additional BP management with Metoprolol Succinate 37.5 mg daily with first dose now to help control his BP as well as his rate. In addition, as he remains tachycardic and we have known source of infection, will consider Sepsis as an additional dx. Abx are changed to Cefepime from Rocephin to add Pseudomonal Coverage. Will continue Azithromycin for atypicals. Incentive spirometry is ordered and will continue to provide supplemental support as needed, but currently on Room air. pt treated for pneumonia stable for DC today Time Spent with Patient Time attestation: Total time spent providing and/or coordinating discharge services:55 minutes on day of DC Exam Narrative: General: Mildly ill-appearing male sitting up in bed in no acute distress. He is upset that he will not be discharged today. HEENT: PERRL, EOMI. Atraumatic and normocephalic head. MMM Neck: Supple. No JVD or lymphadenopathy. No midline tenderness, stepoff, crepitus. Respiratory: On RA now. Respirations are nonlabored he is speaking in full sentences. Rales at the right base with faint wheezing. Cardiovascular: Regular rate and rhythm with S1-S2. Gastrointestinal: Abdomen is soft, nontender, and nondistended with positive bowel sounds. Skin: Warm and dry. No rash or lesions on limited exam. No bruising noted to the bilateral knees. Extremities: No cyanosis, clubbing, or edema. Radial and pedal pulses intact. Grossly intact FROM. Neurological: Alert. Cranial nerves 2-12 are grossly intact. No focal deficits. Psychiatric: Pleasant and cooperative with normal mood and affect. Judgment and insight intact. DS: Data Data Completed and Pending Labs on day of discharge: Labs from last 24 hours 05/28/24 05/27/24 05/27/24 05:13 15:13 12:21 WBC 6.0 RBC 3.19 L Hgb 12.7 L Hct 36.2 L MCV 113.5 H MCH 39.8 H MCHC 35.1 RDW 12.9 Plt Count 462 H MPV 9.9 Immature Gran % (Auto) 0.5 Neut % (Auto) 56.6 Lymph % (Auto) 21.3 [place] % (Auto) 20.5 H Eos % (Auto) 0.8 Baso % (Auto) 0.3 Lymph # (Auto) 1.27 [place] # (Auto) 1.2 H Eos # (Auto) 0.1 Baso # (Auto) 0.0 Abs Immat Gran (auto) 0.03 Absolute Neuts (auto) 3.4 Absolute Nucleated RBC 0.000 Nucleated RBC % 0.0 Sodium 133 L Potassium 3.8 Chloride 99 Carbon Dioxide 26 Anion Gap 8 BUN 4 L Creatinine 0.51 L Estim Creat Clear Calc 145 Estimated GFR > 60 Glucose 93 Serum Osmolality Lactic Acid 1.0 Calcium 8.4 Magnesium 2.3 Total Bilirubin 0.8 AST 26 ALT 13 Alkaline Phosphatase 60 Total Protein 5.0 L Albumin 2.5 L Urine Osmolality Pending Ur Random Sodium 104 Urine Pneumococcal Ag 05/27/24 05/24/24 08:50 22:49 WBC RBC Hgb Hct MCV MCH MCHC RDW Plt Count MPV Immature Gran % (Auto) Neut % (Auto) Lymph % (Auto) [place] % (Auto) Eos % (Auto) Baso % (Auto) Lymph # (Auto) [place] # (Auto) Eos # (Auto) Baso # (Auto) Abs Immat Gran (auto) Absolute Neuts (auto) Absolute Nucleated RBC Nucleated RBC % Sodium Potassium Chloride Carbon Dioxide Anion Gap BUN Creatinine Estim Creat Clear Calc Estimated GFR Glucose Serum Osmolality Pending Lactic Acid Calcium Magnesium Total Bilirubin AST ALT Alkaline Phosphatase Total Protein Albumin Urine Osmolality Ur Random Sodium Urine Pneumococcal Ag Detected A Preliminary micro results at discharge 05/24/24 14:35 Blood Culture - Preliminary Blood 05/24/24 14:35 Blood Culture - Preliminary Blood Discharge Plan Discharge Attending physician on discharge: Erika Porter Discharging Clinician: Erika Porter Anticipated Discharge Date/Time: 05/28/24 12:17 Patient Disposition: Home, Self-Care Activity: as tolerated Diet: regular Discharge Instructions: Pt will need to follow up with PCP for new diagnosis of HTN in 1-2 months time can monitor BP at home with BP monitor SBP over 140 is high SBP over 100 to low Patient Instructions: Antibiotic Form Patient Language: Congolese Stand Alone Forms: General Discharge Information Follow-up/Referrals: UNKNOWN,DOCTOR [Primary Care Provider] - Discharge Medications: New fluticasone propionate 50 mcg/actuation [place],Suspension 1 spray intranasal Q12HR Qty: 1 0RF guaifenesin [Mucus Relief ER] 600 mg Tablet Extended Release 12hr 1,200 mg PO Q12HR Qty: 30 0RF metoprolol succinate [Toprol XL] 50 mg Tablet Extended Release 24 Hr 37.5 mg PO QAM Qty: 30 1RF losartan 25 mg Tablet 50 mg PO DAILY Qty: 30 1RF nicotine [Nicoderm CQ] 21 mg/24 hr Patch 24 Hour 1 patch transdermal DAILY Qty: 7 0RF amoxicillin-pot clavulanate [Augmentin] 500-125 mg tablet 1 tablet PO Q12H Qty: 6 0RF Date of admission: 05/24/24 15:37 Primary Care Provider: UNKNOWN,DOCTOR Admitting Provider: Chris Langston Attending physician on admission: Matilda Waggoner Condition: Stable
[2024-05-28] MEDS: INFLUENZA TRIVALENT VACCINE 45 MCG/0.5 ML SYRINGE IM (12:40)
[2024-05-28 18:33] LABS: Mycoplasma IgM Antibody Titer. 387 U/mL
[2024-05-30 14:48] LABS: Osmolality, Urine. 428 mOsm/kg (50-1200)
[2024-06-06 19:14] LABS: Legionella pneumophila Ag Ur. NOT DETECTED
== END 2024-05-28 12:45 | disposition home or self-care (01) | DRG 194 ==
LOC: ANHED 14:28 → ANH2MED 15:15
PROVIDERS: Nurse Practitioner Adult Health; Physician Assistant; Student in an Organized Health Care Education/Training Program; Admitting Provider Internal Medicine; Emergency Provider Registered Nurse; Visit Provider Family Medicine
DX: J18.9 Pneumonia, unspecified organism (principal); E87.1 Hypo-osmolality and hyponatremia; E87.6 Hypokalemia; E86.0 Dehydration; E83.42 Hypomagnesemia; I10 Essential (primary) hypertension; F17.210 Nicotine dependence, cigarettes, uncomplicated; W19.XXXA Unspecified fall, initial encounter; Z20.822 Contact with and (suspected) exposure to COVID-19; Z23 Encounter for immunization
CPT/HCPCS: 36415; 36600; 71045; 71260; 71275; 80048; 80053; 80307; 81001; 82805; 83605; 83735; 83880; 83930; 83935; 84145; 84300; 84443; 84484; 85018; 85025; 85027; 85380; 85610; 85730; 86140; 86738; 87040; 87070; 87205; 87449; 87637; 87641; 87899; 90471; 90656; 93005; 94640; 94668; 96361; 96365; 96366; 96367; 96375; 99285; A9270; G0008; G0378; J0456; J0692; J0696; J1650; J1885; J3475; J3480; J7030; J7040; J7050; Q9967

== ENCOUNTER 2024-07-25 15:06 | Outpatient (CLI) | payer OTHER, SELFPAY ==
--- NOTE | ~2024-07-25 | XR_ITS ---
EXAMINATION: XR chest 2V 07/25/2024 15:29 INDICATION: Pneumonia PROCEDURE: 2 view chest COMPARISON: 05/24/2019 FINDINGS: The lungs are clear. The cardiomediastinal silhouette is within normal limits. There are no pleural effusions. There is no pneumothorax suspected. Prominent nipple shadows. IMPRESSION: 1: NO ACUTE CARDIOPULMONARY DISEASE. Reviewed, dictated and finalized at location A.
== END 2024-07-25 15:07 | disposition home or self-care (01) ==
PROVIDERS: PCP Internal Medicine; Visit Provider Internal Medicine
DX: J18.9 Pneumonia, unspecified organism (principal)
CPT/HCPCS: 71046